=== PATIENT | male | born 1965 | race African-American/Black ===

== ENCOUNTER 2024-07-13 00:28 | Emergency (ER) | payer OTHER, SELFPAY ==
--- NOTE | ~2024-07-13 | XR_ITS ---
CLINICAL HISTORY: pain lateral midfoot. No injury.?gout 3 view left foot Comparison: None Findings: Bones intact. No dislocations. There are degenerative/arthritic changes in the great toe metatarsophalangeal joint. No ankle effusion. No radiopaque foreign body. IMPRESSION: 1. No acute findings. This document has been electronically signed by: Malik Terrazas MD on 07/13/2024 06:23:26
[2024-07-13 00:41] VITALS: BP 170/89; PULSE 98; RESP 18; TEMP 36.8; O2SAT 94; BMI 35.1
[2024-07-13 00:53] VITALS: BP 170/89; PULSE 98; RESP 18; TEMP 36.8; O2SAT 94
--- NOTE | 2024-07-13 04:45 | ED.GENADULT ---
HPI - General Adult General Chief complaint: Extremity Problem Stated complaint: left foot gout? Time Seen by Provider: 07/13/24 04:45 History of Present Illness ED Provider: Norma GIBSON narrative: The patient is a 59-year-old male who presents with left foot pain that started less than 24 hours ago. He says that he was once diagnosed with what might have been gout. He describes having had an episode of pain in his foot (a different location than today's) and responding to medicine that was intended to treat gout. He says on this occasion he had no injury. The pain began spontaneously. He has had no fever, sweats, chills. He thinks the character the pain is similar to the time that he had what might have been gout. Related Data Previous Rx's ?Medication ?Instructions ?Recorded morphine 15 mg immediate release 15 mg PO Q6H PRN pain #14 tabs 07/13/24 tablet prednisone 5 mg tablet 5 mg PO DIRECTED #66 tabs 07/13/24 Allergies Allergy/AdvReac Type Severity Reaction Status Date / Time No Known Allergies Allergy Verified 07/13/24 00:42 Review of Systems Review of Systems: Yes all other systems are reviewed and are negative [facility] Social History Social History Alcohol intake: current Alcohol intake frequency: a few times a month Alcohol type: beer Smoked in Last 30 Days: No Use of substances other than those prescribed or required for medical reasons: No Advance Directives: No Do you have a plan to hurt others: No Plan Physical Exam ED Vital Signs: Vital Signs - 24 hr 07/13/24 00:41 07/13/24 00:53 07/13/24 05:03 Temperature 98.3 F 98.3 F 97.7 F Pulse Rate 98 98 81 Respiratory Rate 18 18 16 Blood Pressure 170/89 H 170/89 H 184/94 H Pulse Oximetry 94 94 98 Oxygen Delivery Method Room Air Room Air Room Air 07/13/24 06:04 Temperature 97.7 F Pulse Rate 81 Respiratory Rate 16 Blood Pressure 184/94 H Pulse Oximetry 98 Oxygen Delivery Method Room Air BMI result Body Mass Index 35.1 Const Other: The patient is awake and alert. The patient is pleasant and cooperative. The patient has not appear in acute obvious distress or seem obviously acutely ill in any way. HENMT Other: The face is symmetrical. ?Mucous membranes moist. Eyes General: appearance normal, both eyes and all related structures Resp Effort & Inspection: normal respiratory effort Auscultation: clear to auscultation bilaterally Cardio Rate: regular rate Rhythm: regular rhythm Heart sounds: S1 normal heart sound present and S2 normal heart sound present Skin Other: The skin of the left foot is unremarkable. No obvious swelling or erythema. Neuro Other: The patient is awake and alert with a normal mental status. Cranial nerves are intact. He moves his extremities symmetrically. Extrem Other: The patient has tenderness in the region of the lateral left midfoot. No significant warmth. Medications Administered Discontinued Medications Generic Name Dose Route Start Last Admin Trade Name Freq PRN Reason Stop Dose Admin Acetaminophen 975 mg 07/13/24 04:49 07/13/24 04:55 Acetaminophen 325 Mg Tablet PO 07/13/24 04:50 975 mg ONCE ONE Administration Prednisone 60 mg 07/13/24 05:37 07/13/24 05:43 Prednisone 20 Mg Tablet PO 07/13/24 05:38 60 mg ONCE ONE Administration Medical Decision Making Medical Decision Making [facility] Narrative: The patient is a 59-year-old male who presents with atraumatic left foot pain that he believes feels like pain he had when he had what might have been gout on 1 previous occasion. He has an unremarkable foot x-ray. White count and differential are normal. Metabolic panel shows a creatinine of 1.29 and a BUN of 25 with a GFR of 57. Uric acid is elevated at 9.1. CRP is 0.94. I do not have any suspicion for a septic process. The patient will be started on prednisone. He was discharged on a tapering dose of prednisone and also prescribed a small number of morphine tablets. He should follow up with his regular doctor. He was also given a work note. Lab Data 07/13/24 05:01 07/13/24 05:01 Labs: Lab Results 07/13/24 Range/Units 05:01 WBC 5.8 (4.8-10.8) X10*3/uL RBC 5.18 (4.60-5.80) X10*6/uL Hgb 15.9 (14.0-18.0) g/dl Hct 45.9 (42.0-52.0) % MCV 88.6 (80.0-98.0) fL MCH 30.7 (27.0-33.0) pg MCHC 34.6 (31.0-36.0) g/dl RDW 13.8 (11.0-16.0) % Plt Count 243 (160-400) X10*3/uL MPV 9.5 (9.4-12.4) fL Immature Gran % (Auto) 0.2 (0.0-0.4) % Neut % (Auto) 45.5 (45-73) % Lymph % (Auto) 38.4 (20-40) % [place] % (Auto) 11.4 H (2-11) % Eos % (Auto) 4.0 (0-4) % Baso % (Auto) 0.5 (0-2) % Lymph # (Auto) 2.2 (1.2-4.9) X10*3/uL [place] # (Auto) 0.7 (0.1-1.2) X10*3/uL Eos # (Auto) 0.2 (0.0-0.4) X10*3/uL Baso # (Auto) 0.0 (0.0-0.2) X10*3/uL Abs Immat Gran (auto) 0.01 (0.00-0.03) X10*3/uL Absolute Neuts (auto) 2.6 (2.0-8.3) x10*3/uL Absolute Nucleated RBC 0.000 (0.0-0.012) X10*3/uL Nucleated RBC % (auto) 0.0 (0.0-0.2) /100WBC Sodium 143 (135-145) mmol/L Potassium 4.9 (3.3-5.1) mmol/L Chloride 109 H (96-108) mmol/L Carbon Dioxide 25 (22-29) mmol/L Anion Gap 14 (12-20) BUN 25 H (9-16) mg/dL Creatinine 1.29 (0.5-1.4) mg/dL Estim Creat Clear Calc 71.3 Estimated GFR 57 Random Glucose 87 (60-115) mg/dL Uric Acid 9.1 H (3.4-7.0) mg/dL Calcium 9.8 (8.4-10.2) mg/dL Total Bilirubin 0.6 (0.0-1.0) mg/dL Direct Bilirubin 0.2 (0.0-0.5) mg/dL AST 26 (5-37) U/L ALT 30 (0-40) U/L Alkaline Phosphatase 62 (39-117) U/L C-Reactive Protein 0.94 H (< or = 0.50) mg/dL Total Protein 8.6 H (6.5-8.0) g/dL Albumin 4.5 (3.5-5.0) g/dL Discharge Plan Discharge Clinical Impression: Gout Patient Disposition: Home, Self-Care Instructions: Gout (ED) Additional Instructions: I believe you are having another gout attack. You has been started on a course of prednisone, a steroid medication to help reduce inflammation. Prednisone is taken once a day. You have received your dose of prednisone already this morning for today. Your dose today was 60 mg. The prednisone has been prescribed has a taper. Your next dose will be tomorrow. Your next dose will be 55 mg (11 tablets 5 mg each). The next day you will take 10 tablets, the day after that 9 tablets, and you will continue to take 1 tablet less per day until done. You may take 2 extra-strength acetaminophen (Tylenol) up to 3 times a day as needed for pain. I have also sent a prescription for morphine tablets to your pharmacy which you may use if you were not driving or doing other activities that require you to be fully alert. Please contact your regular doctor's office for a follow up appointment next week. Return to the emergency room if significantly worse. Prescriptions: New prednisone 5 mg tablet 5 mg PO DIRECTED Qty: 66 0RF Rx Instructions: Take 11 tablets by mouth daily x1 day, then take 10 tablets daily by mouth x1 day, then take 9 tablets daily by mouth x1 day, continue to take 1 tablet less per day until done. morphine 15 mg tablet 15 mg PO Q6H PRN (Reason: pain) Qty: 14 0RF Rx Instructions: Partial Fill upon patient request. Referrals: Cyndie Rico. Jeet Alcocer [Provider Group] (gout) Stand Alone Forms: Work/School Release Interventions: ED Discharge Assessment Last Done: 07/13/24 06:04 Discharge Date/Time: 07/13/24 06:12 Print Language: Nigerian
[2024-07-13] MEDS: Acetaminophen 325 MG TABLET 975 MG PO (04:55)
[2024-07-13 05:03] VITALS: BP 184/94; PULSE 81; RESP 16; TEMP 36.5; O2SAT 98
[2024-07-13 05:05] LABS: Basophils Percent Auto 0.5 % (0-2); Eosinophils Absolute Auto 0.2 X10*3/uL (0.0-0.4); Hematocrit 45.9 % (42.0-52.0); Hemoglobin 15.9 g/dl (14.0-18.0); Imm Gran Abs Auto 0.01 X10*3/uL (0.00-0.03); Imm Gran Pct Auto 0.2 % (0.0-0.4); Lymphocytes Absolute Auto 2.2 X10*3/uL (1.2-4.9); Lymphocytes Percent Auto 38.4 % (20-40); MANUAL DIFF FLAG NO; Mean Corpuscular HGB Conc 34.6 g/dl (31.0-36.0); Mean Corpuscular Hemoglobin 30.7 pg (27.0-33.0); Mean Corpuscular Volume 88.6 fL (80.0-98.0); Mean Platelet Volume 9.5 fL (9.4-12.4); Monocytes Absolute Auto 0.7 X10*3/uL (0.1-1.2); Monocytes Percent Auto 11.4 % (2-11); Neutrophils Absolute Auto 2.6 x10*3/uL (2.0-8.3); Neutrophils Percent Auto 45.5 % (45-73); Platelet Count 243 X10*3/uL (160-400); Red Blood Count 5.18 X10*6/uL (4.60-5.80); Red Cell Distribution Width 13.8 % (11.0-16.0); White Blood Count 5.8 X10*3/uL (4.8-10.8)
[2024-07-13 05:34] LABS: Alanine Aminotransferase 30 U/L (0-40); Albumin Level 4.5 g/dL (3.5-5.0); Alkaline Phosphatase 62 U/L (39-117); Anion Gap 14 (12-20); Aspartate Amino Transferase 26 U/L (5-37); Bilirubin Direct 0.2 mg/dL (0.0-0.5); Bilirubin Total 0.6 mg/dL (0.0-1.0); Blood Urea Nitrogen 25 mg/dL (9-16); C Reactive Protein 0.94 mg/dL (< or = 0.50); Calcium 9.8 mg/dL (8.4-10.2); Carbon Dioxide 25 mmol/L (22-29); Chloride 109 mmol/L (96-108); Creatinine Clr Calc Pharmacy 71.3; Estimated Glomerular Filt Rate 57; Glucose Random 87 mg/dL (60-115); Potassium 4.9 mmol/L (3.3-5.1); Sodium 143 mmol/L (135-145); Total Protein 8.6 g/dL (6.5-8.0); Uric Acid 9.1 mg/dL (3.4-7.0)
[2024-07-13] MEDS: predniSONE 20 MG TABLET 60 MG PO (05:43)
[2024-07-13 06:04] VITALS: BP 184/94; PULSE 81; RESP 16; TEMP 36.5; O2SAT 98
== END 2024-07-13 06:12 | disposition home or self-care (01) ==
PROVIDERS: Emergency Provider Emergency Medicine
DX: M10.072 Idiopathic gout, left ankle and foot (principal); M79.672 Pain in left foot; Z79.899 Other long term (current) drug therapy
CPT/HCPCS: 36415; 73630; 80048; 80076; 84550; 85025; 86140; 99283; 99284